=== PATIENT | male | born 1995 ===

== ENCOUNTER 2021-07-08 23:11 | Emergency (ER) | payer SELFPAY ==
[2021-07-08 23:29] VITALS: BP 136/79; PULSE 100; RESP 20; TEMP 98.2
--- NOTE | 2021-07-08 23:46 | ED ---
Recheck HPI - General Chief Complaint: Recheck/Abnormal Lab/Rx Stated Complaint: Covid Test Time Seen by Provider: 07/08/21 23:45 Source: patient, RN notes reviewed, old records reviewed Mode of arrival: ambulatory Limitations: no limitations - History of Present Illness Initial Comments: This is a 26-year-old male presented today for evaluation of needing coronavirus testing here in the candidate. Patient's a symptomatic has no complaints no medical history and takes no medications. MD Complaint: medication refill request (Presenting for coronavirus test) -: hour(s) Returns Today for: request for prescription Symptoms Since Prior Visit: no new symptoms Context: planned re-check Associated Symptoms: none Treatments Prior to Arrival: other (none) Review of Systems ROS Statement: Those systems with pertinent positive or pertinent negative responses have been documented in the HPI. ROS Other: All systems not noted in ROS Statement are negative. Past Medical History Past Medical History: No Reported History History of Any Multi-Drug Resistant Organisms: None Reported Past Surgical History: No Surgical Hx Reported Past Psychological History: No Psychological Hx Reported Smoking Status: Never smoker Past Alcohol Use History: None Reported Past Drug Use History: None Reported General Exam Limitations: no limitations General appearance: alert, in no apparent distress Head exam: Present: atraumatic, normocephalic, normal inspection Eye exam: Present: normal appearance, PERRL, EOMI. Absent: scleral icterus, conjunctival injection, periorbital swelling ENT exam: Present: normal exam, mucous membranes moist Neck exam: Present: normal inspection. Absent: tenderness, meningismus, lymphadenopathy Respiratory exam: Present: normal lung sounds bilaterally. Absent: respiratory distress, wheezes, rales, rhonchi, stridor Cardiovascular Exam: Present: regular rate, normal rhythm, normal heart sounds. Absent: systolic murmur, diastolic murmur, rubs, gallop, clicks GI/Abdominal exam: Present: soft, normal bowel sounds. Absent: distended, tenderness, guarding, rebound, rigid Extremities exam: Present: normal inspection, full ROM, normal capillary refill. Absent: tenderness, pedal edema, joint swelling, calf tenderness Back exam: Present: normal inspection Neurological exam: Present: alert, oriented X3, CN II-XII intact Psychiatric exam: Present: normal affect, normal mood Skin exam: Present: warm, dry, intact, normal color. Absent: rash Course Vital Signs 07/08/21 23:26 Temperature 98.2 F Pulse Rate 100 Respiratory 20 Rate Blood Pressure 136/79 O2 Sat by Pulse 99 Oximetry - Reevaluation(s) Reevaluation #1: 07/09/21 02:15 medical record is reviewed Reevaluation #2: 07/09/21 02:15 Patient informed results and questions answered Medical Decision Making - Medical Decision Making 26 male to the emergency department for evaluation for coronavirus test and test here in the ER is negative and can be discharged - Lab Data Lab Results 07/08/21 Range/Units 23:31 Coronavirus (PCR) Not Detected (Not Detectd) Disposition Clinical Impression: Normal exam Disposition: HOME SELF-CARE Condition: Good Instructions (If sedation given, give patient instructions): Normal Exam (ED) Is patient prescribed a controlled substance at d/c from ED?: No Referrals: None,Stated [Primary Care Provider] - 1-2 days
== END 2021-07-09 00:39 | disposition home or self-care (01) ==
LOC: EC 23:11
DX: Z20.822 Contact with and (suspected) exposure to COVID-19 (principal)
CPT/HCPCS: 87635; 99282